=== PATIENT | female | born 1960 | race Caucasian/White ===

== ENCOUNTER 2018-05-03 08:52 | Day surgery (SDC) | payer OTHER ==
[~2018-05-03 08:52] MED LIST: LIPITOR40 MG PO
[2018-05-03] MEDS ORDERED: NAPROXEN SODIU550 M1 PO (11:52)
== END 2018-05-03 15:35 ==
LOC: CIR.AMB 08:52
DX: N95.0 Postmenopausal bleeding (principal)

== ENCOUNTER 2018-06-17 11:55 | Inpatient (IN) | payer OTHER ==
[~2018-06-17] VITALS: Ht 170.2 cm; Wt 77.6 kg
[~2018-06-17 11:55] MED LIST changes: +NAPROXEN SODIU550 M1 PO
[2018-06-18] MEDS ORDERED: LIPITOR40 MG PO (07:22)
[2018-06-18] MEDS ORDERED: NORVASC PO (07:22)
[2018-06-18] MEDS ORDERED: METOPR PO (07:22)
[2018-06-18] MEDS ORDERED: CATAFLAN PO (07:23)
[2018-06-18] MEDS ORDERED: SYNTH PO (07:23)
[2018-06-18] MEDS ORDERED: PREVACID30 M1 PO (07:24)
[2018-06-18] MEDS ORDERED: CRESTOR5 MG PO (07:24)
[2018-06-18] MEDS ORDERED: COZAAR25 MG PO (07:24)
[2018-06-18] MEDS ORDERED: CLONAZEP (07:25)
[2018-06-22] MEDS ORDERED: NORVASC2.5 M1 PO (15:20)
[2018-06-22] MEDS ORDERED: SYNTHROID175 MCG PO (15:20)
[2018-06-22] MEDS ORDERED: VOLTAREN-XR100 MG PO (15:21)
[2018-06-22] MEDS ORDERED: CLONAZEPAM0.5 M1 PO (15:22)
[2018-06-22] MEDS ORDERED: TOPROL XL25 M1 PO (15:22)
[2018-06-23] MEDS ORDERED: FERROUS SULFAT325 M1 PO (06:05)
[2018-06-23] MEDS ORDERED: TRAM1TAB98 PO (06:08)
== END 2018-06-23 09:22 | disposition home or self-care (01) | DRG 743 ==
LOC: O/R 06-21 06:40 → OB/GYN 06-21 06:40 → SURH 06-21 11:00 → OB/GYN 06-21 17:16 → SURH 06-21 18:15 → OB/GYN 06-23 09:22
PROVIDERS: ADMIT Obstetrics & Gynecology Gynecology
PROC: 0UT70ZZ Resection of Bilateral Fallopian Tubes, Open Approach (ICD-10-PCS; 2018-06-21)
PROC: 0UT90ZZ Resection of Uterus, Open Approach (ICD-10-PCS; principal; 2018-06-21 18:15)
DX: N80.0 Endometriosis of uterus (principal); N95.0 Postmenopausal bleeding